=== PATIENT | female | born 1955 | race Caucasian/White ===

== ENCOUNTER 2018-05-24 15:43 | Emergency (ER) | payer BC ==
[~2018-05-24] VITALS: Ht 162.6 cm; Wt 70.0 kg
[2018-05-24 16:14] LABS: BASOPHILS % (AUTO) 0.2 % (0-1); EOSINOPHILS % (AUTO) 0.5 % (0-6); HEMATOCRIT 37.5 % (35.0-45.0); LYMPHOCYTES # (AUTO) 1.4 X10'3 (1.1-4.8); LYMPHOCYTES % (AUTO) 29.8 % (21-51); MEAN CORPUSCULAR HEMOGLOBIN 33.2 PG (27.0-31.0); MEAN CORPUSCULAR HGB CONC 34.8 % (33.0-36.5); MEAN CORPUSCULAR VOLUME 95.4 FL (78-98); MEAN PLATELET VOLUME 7.5 FL (7.4-10.4); MONOCYTES # (AUTO) 0.4 X10'3 (0-0.9); MONOCYTES % (AUTO) 7.9 % (2-12); NEUTROPHILS # (AUTO) 2.8 X10'3 (1.8-7.7); NEUTROPHILS % (AUTO) 61.6 % (42-75); PLATELET COUNT 248 X10'3 (140-440); RED BLOOD COUNT 3.93 X10'6 (4.20-5.60); RED CELL DISTRIBUTION WIDTH 13.9 % (11.5-14.5); WHITE BLOOD COUNT 4.6 X10'3 (4.5-11.0)
[2018-05-24 16:17] VITALS: BP 131/76
[2018-05-24 16:28] LABS: ALANINE AMINOTRANSFERASE 34 U/L (12-78); ALBUMIN 3.3 G/DL (3.4-5.0); ALBUMIN/GLOBULIN RATIO 0.9 (1.1-1.5); ALKALINE PHOSPHATASE 45 IU/L (46-116); ANION GAP 8 (8-16); ASPARTATE AMINO TRANSFERASE 17 U/L (10-37); BILIRUBIN,TOTAL 0.4 MG/DL (0.1-1.0); BLOOD UREA NITROGEN 20 MG/DL (7-18); CALCIUM 8.4 MG/DL (8.5-10.1); CHLORIDE 104 MMOL/L (99-107); CREATININE 0.87 MG/DL (0.40-0.90); GLUCOSE 130 MG/DL (70-104); POTASSIUM 3.3 MMOL/L (3.5-5.1); SODIUM 140 MMOL/L (135-145); TOTAL CARBON DIOXIDE 28.1 MMOL/L (24-32); TOTAL PROTEIN 6.8 G/DL (6.4-8.2); eGFR 66 ML/MIN
[2018-05-24] MEDS ORDERED: potassium Cl 20 mEq SR tablet PO STA (16:40)
[2018-05-24] MEDS ORDERED: LORazepam 0.5 MG tablet PO ONE (16:40)
[2018-05-24] MEDS ORDERED: POTA20TA19 PO (16:55)
[2018-05-24] MEDS ORDERED: OMEP40CA37 PO (16:55)
== END 2018-05-24 17:24 | disposition home or self-care (01) ==
LOC: ER 15:43
DX: R07.9 Chest pain, unspecified (principal); E78.00 Pure hypercholesterolemia, unspecified; K21.9 Gastro-esophageal reflux disease without esophagitis; Z90.89 Acquired absence of other organs; Z88.0 Allergy status to penicillin; Z79.899 Other long term (current) drug therapy
CPT/HCPCS: 36415; 71045; 80053; 83735; 83880; 84484; 85025; 93005; 99285

== ENCOUNTER 2021-10-22 20:04 | Emergency (ER) | payer MEDICARE, BC ==
[~2021-10-22] VITALS: Ht 162.6 cm; Wt 72.7 kg
[2021-10-22] MEDS ORDERED: ondansetron/PF 4mg/2ml inj IV ONE (20:25)
[2021-10-22] MEDS ORDERED: normal saline 1000ML IV soln IVB ONE (20:25)
[2021-10-22 20:29] VITALS: BP 117/80
[2021-10-22 21:02] LABS: BASOPHILS % (AUTO) 0.2 % (0-1); EOSINOPHILS % (AUTO) 0 % (0-6); HEMATOCRIT 37.1 % (35.0-45.0); HEMOGLOBIN 12.7 g/dl (12.0-16.0); LYMPHOCYTES # (AUTO) 0.4 X10'3 (1.1-4.8); LYMPHOCYTES % (AUTO) 10.6 % (21-51); MEAN CORPUSCULAR HEMOGLOBIN 32.4 PG (27.0-31.0); MEAN CORPUSCULAR HGB CONC 34.3 g/dL (33.0-36.5); MEAN CORPUSCULAR VOLUME 94.4 FL (78-98); MEAN PLATELET VOLUME 8.2 FL (7.4-10.4); MONOCYTES # (AUTO) 0.2 X10'3 (0-0.9); MONOCYTES % (AUTO) 5.5 % (2-12); NEUTROPHILS # (AUTO) 3.1 X10'3 (1.8-7.7); NEUTROPHILS % (AUTO) 83.7 % (42-75); PLATELET COUNT 154 X10'3 (140-440); RED BLOOD COUNT 3.93 X10'6 (4.20-5.60); RED CELL DISTRIBUTION WIDTH 13.2 % (11.5-14.5); WHITE BLOOD COUNT 3.7 X10'3 (4.5-11.0)
[2021-10-22] MEDS ORDERED: dexamethasone sod phosphate 10mg/ml inj IV STA (21:09)
[2021-10-22] MEDS ORDERED: CASIRIVIMAB/IMDEVIMAB inject. 10 ML in normal saline 100ml IV soln 100 ML IV ONE (21:10)
[2021-10-22 21:13] LABS: ALANINE AMINOTRANSFERASE 32 U/L (12-78); ALBUMIN 3.4 G/DL (3.4-5.0); ALBUMIN/GLOBULIN RATIO 0.8 (1.1-1.5); ALKALINE PHOSPHATASE 59 IU/L (46-116); ANION GAP 7 (8-16); ASPARTATE AMINO TRANSFERASE 28 U/L (10-37); BILIRUBIN,TOTAL 0.4 MG/DL (0.1-1.0); BLOOD UREA NITROGEN 12 MG/DL (7-18); BUN/CREATININE RATIO 13.6 (6.6-38.0); C-REACTIVE PROTEIN 10.09 MG/DL (0.0-0.5); CALCIUM 8.5 MG/DL (8.5-10.1); CHLORIDE 99 MMOL/L (99-107); CREATININE 0.88 MG/DL (0.40-0.90); D-DIMER 0.24 MG/L FEU (0-0.50); GLUCOSE 139 MG/DL (70-104); SODIUM 134 MMOL/L (135-145); TOTAL CARBON DIOXIDE 28.3 MMOL/L (24-32); TOTAL PROTEIN 7.6 G/DL (6.4-8.2); eGFR 64 ML/MIN
[2021-10-22] MEDS ORDERED: hydrocortisone sod succ/PF 100mg/2ml inj. IV PRN (21:25)
[2021-10-22] MEDS ORDERED: albuterol 2.5 MG/3 ML nebule NEB PRN (21:25)
[2021-10-22] MEDS ORDERED: epiNEPHrine 1 mg/ml inj IM PRN (21:25)
[2021-10-22] MEDS ORDERED: famotidine/PF 10 mg/ml inj IV PRN (21:25)
[2021-10-22] MEDS ORDERED: acetaminophen 325mg tablet PO PRN (21:25)
[2021-10-22] MEDS ORDERED: diphenhydrAMINE 50 mg/ml inj IV PRN (21:25)
[2021-10-22] MEDS ORDERED: proCHLORperazine 10 MG/2 ml inj IV ONE (22:00)
[2021-10-22] MEDS ORDERED: BUDE180A INH (22:03)
[2021-10-22] MEDS ORDERED: ALBU6.7H9 INH (22:03)
[2021-10-22] MEDS ORDERED: ONDA4TAB6 PO (22:03)
== END 2021-10-22 23:58 | disposition home or self-care (01) ==
LOC: ER 20:05
DX: U07.1 COVID-19 (principal); E78.00 Pure hypercholesterolemia, unspecified; K21.9 Gastro-esophageal reflux disease without esophagitis; F32.9 Major depressive disorder, single episode, unspecified; Z88.0 Allergy status to penicillin; Z87.442 Personal history of urinary calculi; Z88.1 Allergy status to other antibiotic agents; Z88.8 Allergy status to other drugs, medicaments and biological substances
CPT/HCPCS: 36415; 71045; 80053; 84145; 85025; 85379; 86140; 96374; 96375; 99285; J0780; J1100; J2405; J3490; J7030; M0243; Q0244; 96361